=== PATIENT | female | born 1985 | race Caucasian/White ===

== ENCOUNTER 2017-09-13 11:07 | Emergency (ER) | payer OTHER, SELFPAY ==
[2017-09-13 11:55] LABS: BHCG - Serum Negative (NEGATIVE); Pregs Control Background? CLEAR/WHITE (CLR/WHITE); Pregs Control Bar Appear? YES (CONTROL BAR)
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
--- NOTE | 2017-09-13 13:03 | RAD ---
PORTABLE CHEST ONE VIEW: Date: 09-13-17 Time: 12:47 p.m. History: Chest pain. FINDINGS/IMPRESSION: The heart size is normal. The lungs are expanded without lobar consolidation, pneumothoraces or pleur al effusions. POS: [facility]
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
== END 2017-09-13 13:25 | disposition home or self-care (01) ==
LOC: ERS 11:07
DX: M54.2 Cervicalgia (principal); F41.9 Anxiety disorder, unspecified; F31.9 Bipolar disorder, unspecified; V89.2XXA Person injured in unspecified motor-vehicle accident, traffic, initial encounter
CPT/HCPCS: 36415; 70450; 71045; 72100; 72125; 72170; 84703; 93005; G0390